=== PATIENT | female | born 1975 | race Hispanic/Latino ===

== ENCOUNTER 2019-09-05 08:31 | Outpatient (CLI) | payer OTHER ==
--- NOTE | 2019-09-05 09:28 | MMO ---
Bilateral MAMMO Bilat Diag [facility]DI+TED. CLINICAL HISTORY: Patient is 44 years old and is seen for diagnostic exam. The patient has no family history of breast cancer. The patient has no personal history of cancer. VIEWS: The views performed were: bilateral craniocaudal with tomosynthesis; bilateral mediolateral oblique with tomosynthesis; and bilateral mediolateral with tomosynthesis. FILMS COMPARED: The present examination has been compared to a prior imaging study performed at [facility] on 09/05/2019. This study has been interpreted with the assistance of computer-aided detection. MAMMOGRAM FINDINGS: The breasts are extremely dense, which may lower the sensitivity of mammography. There are equal density, oval masses with circumscribed margins seen in both breasts. These were shown to represent cysts on ultrasound. There are no suspicious masses, suspicious calcifications, or areas of architectural distortion. IMPRESSION: THERE IS NO MAMMOGRAPHIC EVIDENCE OF MALIGNANCY. THE RESULTS OF THIS EXAM WERE SENT TO THE PATIENT. ACR BI-RADS Category 2 - Benign finding MAMMOGRAPHY NOTE: 1. A negative mammogram report should not delay a biopsy if a dominant of clinically suspicious mass is present. 2. Approximately 10% to 15% of breast cancers are not detected by mammography. 3. Adenosis and dense breasts may obscure an underlying neoplasm. Reported by: PATRICIA GUERRERO MD Electonically Signed: [id number]
--- NOTE | 2019-09-05 09:53 | ULT ---
LIMITED RIGHT BREAST ULTRASOUND: DATE: 09/05/2019. PROVIDED CLINICAL HISTORY: Right breast palpable abnormality. FINDINGS: Limited sonographic interrogation is performed of the right breast at the 6 o'clock and 1 o'clock pos itions in the regions of palpable concern. Simple-appearing cysts are seen in these locations, measu ring about 2.5 cm at 6 o'clock and about 3.2 cm at 1 o'clock. No concerning sonographic findings are evident. IMPRESSION: BI-RADS category 2 - benign findings. The patient is referred back to her clinician. POS: OFF
--- NOTE | 2019-09-05 09:59 | ULT ---
LIMITED LEFT BREAST ULTRASOUND: DATE: 09/05/2019. PROVIDED CLINICAL HISTORY: Left breast palpable abnormalities. FINDINGS: Limited sonographic interrogation is performed of the left breast at the 11, 12, 1, and 5 o'clock pos itions in the regions of palpable concern. Multiple simple cysts are seen, the largest of which is a t the 12 o'clock location and measures about 5.6 cm. No concerning sonographic findings are evident. IMPRESSION: BI-RADS category 2 - benign findings. The patient was referred back to her clinician. POS: OFF
== END 2019-09-05 08:32 | disposition home or self-care (01) ==
LOC: BICMAMMO 08:31
PROVIDERS: ATTEND Nurse Practitioner Family
DX: N60.02 Solitary cyst of left breast (principal); N60.01 Solitary cyst of right breast
CPT/HCPCS: 77066; G0279